=== PATIENT | female | born 1995 | race Two or more races ===

== ENCOUNTER 2022-12-05 11:13 | Observation (INO) | payer MEDICAID | END 2022-12-05 13:33 | disposition home or self-care (01) | LOC: LDRP 11:13 | PROVIDERS: ADMIT Obstetrics & Gynecology; ATTEND Obstetrics & Gynecology | DX: O40.3XX0 Polyhydramnios, third trimester, not applicable or unspecified (principal); Z3A.36 36 weeks gestation of pregnancy | CPT/HCPCS: 59025; 76818; 81002; G0378 ==

== ENCOUNTER 2022-12-07 18:54 | Observation (INO) | payer MEDICAID | END 2022-12-07 20:20 | disposition home or self-care (01) | LOC: LDRP 18:54 | PROVIDERS: ADMIT Obstetrics & Gynecology; ATTEND Obstetrics & Gynecology | DX: O40.3XX0 Polyhydramnios, third trimester, not applicable or unspecified (principal); Z3A.36 36 weeks gestation of pregnancy | CPT/HCPCS: 59025; 76818; 81002; 94760; G0378 ==

== ENCOUNTER 2022-12-10 19:08 | Observation (INO) | payer MEDICAID ==
[2022-12-10] MEDS ORDERED: CEPH250C PO (20:25)
== END 2022-12-10 20:48 | disposition home or self-care (01) ==
LOC: LDRP 19:08
PROVIDERS: ADMIT Obstetrics & Gynecology; ATTEND Obstetrics & Gynecology
DX: O40.3XX0 Polyhydramnios, third trimester, not applicable or unspecified (principal); O23.43 Unspecified infection of urinary tract in pregnancy, third trimester; Z3A.36 36 weeks gestation of pregnancy
CPT/HCPCS: 59025; 76818; 81002; G0378

== ENCOUNTER 2022-12-14 18:58 | Observation (INO) | payer MEDICAID ==
[~2022-12-14 18:58] MED LIST: CEPH250C PO
== END 2022-12-14 20:55 | disposition home or self-care (01) ==
LOC: LDRP 18:58
PROVIDERS: ADMIT Obstetrics & Gynecology; ATTEND Obstetrics & Gynecology
DX: O40.3XX0 Polyhydramnios, third trimester, not applicable or unspecified (principal); O23.43 Unspecified infection of urinary tract in pregnancy, third trimester; Z3A.37 37 weeks gestation of pregnancy
CPT/HCPCS: 59025; 76818; 81002; 82948; G0378

== ENCOUNTER 2022-12-17 18:55 | Observation (INO) | payer MEDICAID | END 2022-12-17 20:39 | disposition home or self-care (01) | LOC: LDRP 18:55 | PROVIDERS: ADMIT Obstetrics & Gynecology; ATTEND Obstetrics & Gynecology | DX: O40.3XX0 Polyhydramnios, third trimester, not applicable or unspecified (principal); Z3A.37 37 weeks gestation of pregnancy | CPT/HCPCS: 59025; 76818; 81002; G0378 ==

== ENCOUNTER 2022-12-21 18:57 | Observation (INO) | payer MEDICAID ==
[~2022-12-21] VITALS: Ht 175.3 cm; Wt 67.1 kg
[2022-12-21] MEDS ORDERED: PREN27TA7 OR (19:31)
== END 2022-12-21 20:51 | disposition home or self-care (01) ==
LOC: LDRP 18:57
PROVIDERS: ADMIT Obstetrics & Gynecology; ATTEND Obstetrics & Gynecology
DX: O40.3XX0 Polyhydramnios, third trimester, not applicable or unspecified (principal); Z3A.38 38 weeks gestation of pregnancy
CPT/HCPCS: 59025; 76818; 81002; 94760; G0378

== ENCOUNTER 2022-12-24 14:25 | Observation (INO) | payer MEDICAID ==
[~2022-12-24 14:25] MED LIST changes: +PREN27TA7 OR
== END 2022-12-24 16:11 | disposition home or self-care (01) ==
LOC: UNDOADMOB 14:25 → LDRP 14:25
PROVIDERS: ADMIT Obstetrics & Gynecology; ATTEND Obstetrics & Gynecology
DX: O40.3XX0 Polyhydramnios, third trimester, not applicable or unspecified (principal); Z3A.38 38 weeks gestation of pregnancy
CPT/HCPCS: 59025; 76818; 81002; 94760; G0378

== ENCOUNTER 2023-12-13 02:19 | Inpatient (IN) | payer MEDICAID ==
[~2023-12-13] VITALS: Ht 150.4 cm; Wt 67.1 kg
[2023-12-13] MEDS ORDERED: LACTATED RINGER'S 1,000 ML IV SCH (03:45)
[2023-12-13] MEDS ORDERED: miSOPROStol 100 mcg TAB SL PRN (03:45)
[2023-12-13] MEDS ORDERED: BUTORPHANOL TARTRATE 2 MG/1 ML VIAL IV PRN ×2 (03:45)
[2023-12-13] MEDS ORDERED: METHYLERGONOVINE MALEATE 0.2 MG/ML AMP IM PRN (03:45)
[2023-12-13] MEDS ORDERED: ONDANSETRON HCL 4 MG/2 ML VIAL IV PRN (03:45)
[2023-12-13] MEDS ORDERED: miSOPROStol 100 mcg TAB PR PRN (03:45)
[2023-12-13] MEDS ORDERED: CARBOPROST TROMETHAMINE 250 MCG/1ML VIAL IM PRN ×2 (03:45→06:45)
[2023-12-13] MEDS ORDERED: LIDOCAINE 2%HCL (LOCAL ANESTH.) INJ 20ML MDV IJ PRN (03:45)
[2023-12-13 04:16] LABS: Basophils # (auto) 0.1 10 ^3/uL (0-0.2); Basophils % (auto) 0.7 % (0.0-2.0); Eosinophils # (auto) 0 10 ^3/uL (0-0.8); Eosinophils % (auto) 0.5 % (0.0-7.0); Hematocrit 33.1 % (36.0-46.0); Hemoglobin 11.6 g/dL (12.2-16.2); Lymphocytes # (auto) 1.5 10 ^3/uL (0.4-5.4); Lymphocytes % (auto) 20.2 % (10.0-50.0); Mean Corpuscular Hgb Conc. 35.1 g/dL (32.0-36.0); Monocytes # (auto) 0.5 10 ^3/uL (0-1.3); Monocytes % (auto) 7.4 % (0.0-12.0); Neutrophils # (auto) 5.1 10 ^3/uL (1.6-8.6); Neutrophils % (auto) 71.2 % (37.0-80.0); Platelet Count (auto) 195 10^3/uL (140-450); Red Blood Cells 3.64 10^6/uL (4.0-5.20); Red Cell Distribution Width 13.7 % (11.8-14.3); White Blood Cell 7.2 10^3/uL (4.4-10.8)
[2023-12-13 04:19] LABS: Urine Bacteria FEW /hpf (None Seen); Urine Blood TRACE /uL (Negative); Urine Clarity Clear (Clear); Urine Color Colorless (Yellow); Urine Protein, UAD Negative (Negative); Urine Urobilinogen Normal (Negative); Urine WBC 1 /hpf (0 - 5); Urine pH 7.5 (5.0-9.0)
[2023-12-13 04:32] LABS: Alkaline Phosphatase 187 U/L (46-116); Anion Gap 9 (5-15); Aspartate Aminotransferase 13 U/L (13-40); BUN/Creatinine Ratio 12.2 (10.0-20.0); Blood Urea Nitrogen 6 mg/dL (9-23); Calcium 9.3 mg/dL (8.7-10.4); Carbon Dioxide 21 mmol/L (20-30); Chloride 107 mmol/L (98-107); Glucose 81 mg/dL (74-106); INR 0.97 (0.9-1.15); Partial Thromboplastin Time 25.9 SEC (24.5-34.5); Potassium 3.8 mmol/L (3.5-5.1); Prothrombin Time 10.3 sec (9.3-11.8); Sodium 137 mmol/L (136-145)
[2023-12-13 04:32] LABS: Amphetamine Screen, Urine Neg (NEGATIVE); Barbiturate Scree,Urine Neg (NEGATIVE); Benzodiazephine Screen, Urine Neg (NEGATIVE); Cannabinoid Screen, Urine Neg (NEGATIVE); Cocaine Screen, Urine Neg (NEGATIVE); Opiate Scree,Urine Neg (NEGATIVE); Phencyclidine Screen, Urine Neg (NEGATIVE)
[2023-12-13 04:33] LABS: Alanine Aminotransferase < 9 U/L (7-40); Albumin 3.9 g/dL (3.2-4.8); Bilirubin, Total 0.7 mg/dL (0.2-1.0); Total Protein 6.3 g/dL (5.7-8.2)
[2023-12-13] MEDS: fentaNYL CITRATE 100 MCG/2 ML VL IV ONE (04:45)
[2023-12-13] MEDS: LIDOCAINE HCL 2 %PF INJ 10ML AMP IJ ONE ×2 (04:45→04:55)
[2023-12-13] MEDS: NALOXONE HCL 0.4 MG/ML VIAL IV ONE (04:45)
[2023-12-13] MEDS: ePHEDrine SULFATE 50 MG/ML AMP IV ONE (04:45)
[2023-12-13] MEDS: LACTATED RINGER'S 1,000 ML IV ONE ×2 (04:45→04:54)
[2023-12-13] MEDS: NALOXONE HCL 0.4 MG/ML VIAL ONE (04:54)
[2023-12-13] MEDS: fentaNYL CITRATE 100 MCG/2 ML VL ONE (04:54)
[2023-12-13] MEDS: ePHEDrine SULFATE 50 MG/ML AMP ONE (04:55)
[2023-12-13] MEDS: PENICILLIN G POT 5MIL/D5 50ML 50 ML IV ONE (05:01)
[2023-12-13] MEDS: ROPIVACAINE HCL 200 ML ONE (05:28)
[2023-12-13] MEDS: WITCH HAZEL-GLYCERIN PAD TOP PRN (05:32)
[2023-12-13] MEDS: PHISODERM TOP SOLN 240ML BTL TOP PRN (05:32)
[2023-12-13] MEDS: DERMOPLAST 60ML BOTTLE TOP PRN (05:32)
[2023-12-13] MEDS: TRANEXAMIC ACID 1,000 MG in SODIUM CHL 0.9% 100 ML IV ONE (06:45)
[2023-12-13] MEDS ORDERED: DIPHENOXYLATE W/ATROPINE 2.5 MG TAB PO PRN ×2 (07:30)
[2023-12-13] MEDS ORDERED: PENICILLIN G POTASSIUM 2,500,000 UNITS in D5W 5% 50 ML IV SCH ×2 (08:15→14:00)
[2023-12-13] MEDS: PENICILLIN G POTASSIUM 2,500,000 UNITS in D5W 5% 50 ML IV SCH (09:47)
[2023-12-13] MEDS ORDERED: DIPHENOXYLATE W/ATROPINE 2.5 MG TAB PO SCH ×2 (10:00)
[2023-12-13] MEDS: LACT. RINGERS/OXYTOCIN 20UNITS 500 ML IV ONE ×2 (10:46→10:47)
[2023-12-13] MEDS ORDERED: ACETAMINOPHEN 325 MG TAB PO PRN (11:00)
[2023-12-13 15:00] VITALS: BP 109/72; PULSE 80; RESP 18; TEMP 97.8; O2SAT 97
[2023-12-13 18:46] VITALS: BP 113/71; PULSE 97; RESP 16; TEMP 98.6; O2SAT 97
[2023-12-13 23:00] VITALS: BP 123/80; PULSE 75; RESP 16; TEMP 98.5; O2SAT 98
[2023-12-13] MEDS: IBUPROFEN 600 MG TAB PO PRN (23:29)
[2023-12-14 03:00] VITALS: BP 109/79; PULSE 72; RESP 18; TEMP 97.8; O2SAT 98
[2023-12-14] MEDS ORDERED: IBU600T PO (05:30)
[2023-12-14 06:23] LABS: Basophils # (auto) 0.1 10 ^3/uL (0-0.2); Basophils % (auto) 0.6 % (0.0-2.0); Eosinophils # (auto) 0.1 10 ^3/uL (0-0.8); Eosinophils % (auto) 0.8 % (0.0-7.0); Hematocrit 34.3 % (36.0-46.0); Hemoglobin 11.9 g/dL (12.2-16.2); Lymphocytes # (auto) 1.7 10 ^3/uL (0.4-5.4); Lymphocytes % (auto) 19.1 % (10.0-50.0); Mean Corpuscular Hemoglobin 31.8 pg (28.0-32.0); Mean Corpuscular Hgb Conc. 34.6 g/dL (32.0-36.0); Mean Corpuscular Volume 91.8 fL (80.0-100.0); Monocytes # (auto) 0.5 10 ^3/uL (0-1.3); Monocytes % (auto) 5.7 % (0.0-12.0); Neutrophils # (auto) 6.4 10 ^3/uL (1.6-8.6); Neutrophils % (auto) 73.8 % (37.0-80.0); Platelet Count (auto) 191 10^3/uL (140-450); Red Blood Cells 3.73 10^6/uL (4.0-5.20); Red Cell Distribution Width 13.9 % (11.8-14.3); White Blood Cell 8.7 10^3/uL (4.4-10.8)
[2023-12-14 07:00] VITALS: BP 109/68; PULSE 55; RESP 16; TEMP 98.3; O2SAT 97
[2023-12-14 07:06] LABS: RPR Non Reactive (Non Reactive)
[2023-12-14 08:06] LABS: Rubella Antibodies, IgG 1.22 index (Immune >0.99)
[2023-12-14 09:17] VITALS: TEMP 36.8
[2023-12-14 11:00] VITALS: BP 119/83; PULSE 60; RESP 18; TEMP 97.8; O2SAT 99
== END 2023-12-14 12:25 | disposition home or self-care (01) | DRG 560 ==
LOC: LDRP 02:19 → UNDOADMOB 02:19 → LDRP 03:24 → OBSVTOIN 03:24 → INTOOBSV 03:24 → LDRP 03:40 → OBSVTOIN 03:40 → NUR 13:53 → LDRP 16:56
PROVIDERS: ADMIT Obstetrics & Gynecology; ATTEND Obstetrics & Gynecology
PROC: 10E0XZZ Delivery of Products of Conception, External Approach (ICD-10-PCS; principal; 2023-12-13)
PROC: 3E0R3BZ Introduction of Anesthetic Agent into Spinal Canal, Percutaneous Approach (ICD-10-PCS; 2023-12-13)
PROC: 00HU33Z Insertion of Infusion Device into Spinal Canal, Percutaneous Approach (ICD-10-PCS; 2023-12-13)
PROC: 10907ZC Drainage of Amniotic Fluid, Therapeutic from Products of Conception, Via Natural or Artificial Opening (ICD-10-PCS; 2023-12-13)
DX: O80 Encounter for full-term uncomplicated delivery (principal); Z37.0 Single live birth; Z3A.38 38 weeks gestation of pregnancy
CPT/HCPCS: 36415; 59025; 59409; 62282; 80053; 80307; 81001; 81002; 85025; 85610; 85730; 86592; 86703; 86762; 86803; 86850; 86900; 86901; 87340; 94760; 96360; 96361; 96365; G0378; J2540; J2590; J7060

== ENCOUNTER → 2023-12-27 | Outpatient (CLI) | payer MEDICAID ==
[~2023-12-27] MED LIST changes: -CEPH250C PO; +IBU600T PO
[2023-12-27 15:53] LABS: Basophils # (auto) 0.1 10 ^3/uL (0-0.2); Basophils % (auto) 1.3 % (0.0-2.0); Eosinophils # (auto) 0.1 10 ^3/uL (0-0.8); Eosinophils % (auto) 1.8 % (0.0-7.0); Hematocrit 41.5 % (36.0-46.0); Hemoglobin 14.2 g/dL (12.2-16.2); Lymphocytes # (auto) 2.3 10 ^3/uL (0.4-5.4); Lymphocytes % (auto) 32.7 % (10.0-50.0); Mean Corpuscular Hemoglobin 30.8 pg (28.0-32.0); Mean Corpuscular Hgb Conc. 34.2 g/dL (32.0-36.0); Monocytes # (auto) 0.4 10 ^3/uL (0-1.3); Monocytes % (auto) 5.8 % (0.0-12.0); Neutrophils # (auto) 4.1 10 ^3/uL (1.6-8.6); Neutrophils % (auto) 58.4 % (37.0-80.0); Nucleated Red Blood Cells % 0.1 %; Platelet Count (auto) 317 10^3/uL (140-450); Red Blood Cells 4.61 10^6/uL (4.0-5.20); Red Cell Distribution Width 13.5 % (11.8-14.3)
== END | disposition home or self-care (01) ==
LOC: LAB 15:23
PROVIDERS: ATTEND Obstetrics & Gynecology
DX: Z34.80 Encounter for supervision of other normal pregnancy, unspecified trimester (principal)
CPT/HCPCS: 36415; 85025